=== PATIENT | female | born 1950 | race Caucasian/White ===

== ENCOUNTER 2017-07-21 14:30 | Outpatient (RCR) | payer MEDICARE, OTHER | END 2017-07-21 15:00 | disposition home or self-care (01) | LOC: PT 14:30 | DX: R26.0 Ataxic gait (principal) ==

== ENCOUNTER 2021-05-13 02:05 | Emergency (ER) | payer MEDICARE, OTHER ==
[~2021-05-13] VITALS: Ht 172.7 cm; Wt 73.0 kg
[2021-05-13] MEDS ORDERED: LEVOTHYROXINE0.05 MG PO (02:15)
[2021-05-13] MEDS ORDERED: ESCITALOPRAM20 MG PO (02:16)
[2021-05-13] MEDS ORDERED: LISINOPRIL20 MG PO (02:16)
[2021-05-13] MEDS ORDERED: SIMVASTATIN40 M1 PO (02:16)
[2021-05-13] MEDS ORDERED: AMBIEN5 M1 PO (02:16)
[2021-05-13] MEDS ORDERED: NORCO 325 MG-51 TA1 PO ×2 (04:11→04:19)
[2021-05-13 04:29] VITALS: BP 142/76
== END 2021-05-13 04:29 | disposition home or self-care (01) ==
LOC: ED 02:05
DX: S22.41XA Multiple fractures of ribs, right side, initial encounter for closed fracture (principal); M54.6 Pain in thoracic spine; M25.511 Pain in right shoulder; W01.198A Fall on same level from slipping, tripping and stumbling with subsequent striking against other object, initial encounter; Y92.091 Bathroom in other non-institutional residence as the place of occurrence of the external cause
CPT/HCPCS: J2405; J3010

== ENCOUNTER → 2021-07-27 | Outpatient (CLI) | payer MEDICARE, OTHER ==
[~2021-07-27] MED LIST: AMBIEN5 M1 PO; ESCITALOPRAM20 MG PO; LEVOTHYROXINE0.05 MG PO; LISINOPRIL20 MG PO; NORCO 325 MG-51 TA1 PO; SIMVASTATIN40 M1 PO
== END ==
LOC: RAD 07-23 18:15
DX: M25.511 Pain in right shoulder (principal)

== ENCOUNTER 2024-03-06 23:56 | Emergency (ER) | payer MEDICARE, OTHER ==
[~2024-03-06] VITALS: Ht 167.6 cm; Wt 68.2 kg
[2024-03-07] MEDS ORDERED: Ondansetron 4 MG/2 ML VIAL IV ONE (00:30)
[2024-03-07] MEDS ORDERED: NS 1,000 ML IV SCH (01:00)
[2024-03-07 01:01] LABS: BASO # 0.02 K/mm3 (0.02-0.10); EOS # 0.01 K/mm3 (0.04-0.40); EOS % 0.2 % (1.0-5.0); HEMATOCRIT 42.9 % (37.0-47.0); HEMOGLOBIN 14.6 g/dL (12.5-16.0); LYMPH# 0.87 K/mm3 (1.50-4.00); MEAN CELL VOLUME 102 fl (78-100); MEAN CORPUSCULAR HEMOGLOBIN 35 pg (27-31); MEAN CORPUSCULAR HGB CONC 34 g/dL (33-37); MEAN PLATELET VOLUME 9.5 fl (7.4-10.4); MONO # 0.35 K/mm3 (0.20-0.80); NEU # 5.26 K/mm3 (1.40-6.50); PLATELET COUNT 242 K/mm3 (130-400); RED CELL DISTRIBUTION WIDTH 12.5 % (11.5-14.5); WHITE BLOOD COUNT 6.6 K/mm3 (4.8-10.8)
[2024-03-07 01:08] LABS: ALBUMIN 4.3 g/dL (3.4-4.8); SODIUM 136 mmol/L (136-145)
[2024-03-07 01:10] LABS: CALCIUM 10.3 mg/dL (8.3-10.5); GLUCOSE 122 mg/dL (65-105)
[2024-03-07 01:11] LABS: TOTAL PROTEIN 7.1 g/dL (6.2-8.1)
[2024-03-07 01:13] LABS: CARBON DIOXIDE 16 mmol/L (23-31); TOTAL BILIRUBIN 0.3 mg/dL (0.2-1.2)
[2024-03-07 01:16] LABS: AST-SGOT 88 U/L (5-34)
[2024-03-07 01:17] LABS: ALT/SGPT 131 U/L (0-55)
[2024-03-07 01:18] LABS: LIPASE 41 U/L (8-78)
[2024-03-07 01:25] LABS: TROPONIN-I < 0.030 ng/mL (0.00-0.033)
[2024-03-07 01:37] LABS: PH-URINE 5.5 (5.0 - 8.0); URINE APPEARANCE SLIGHTLY CLOUDY (CLEAR); URINE COLOR DARK YELLOW (YELLOW); URINE PROTEIN(semi-quant) NEGATIVE (NEGATIVE)
[2024-03-07 01:38] LABS: URINE BILIRUBIN NEGATIVE (NEGATIVE); URINE BLOOD TRACE-INTACT (NEGATIVE); URINE GLUCOSE NEGATIVE (NEGATIVE); URINE KETONE 1+ (NEGATIVE); URINE LEUKOCYTE ESTERASE 1+ (NEGATIVE); URINE NITRATE NEGATIVE (NEGATIVE)
[2024-03-07 01:41] LABS: URINE MUCUS PRESENT (NOT PRESENT)
[2024-03-07] MEDS ORDERED: Iohexol 300 - 100 ML VIAL IV ONE (02:18)
[2024-03-07 04:39] VITALS: BP 181/112
== END 2024-03-07 04:41 | disposition home or self-care (01) ==
LOC: ED 23:56
PROVIDERS: Nurse Practitioner Family
DX: K52.9 Noninfective gastroenteritis and colitis, unspecified (principal); R74.02 Elevation of levels of lactic acid dehydrogenase [LDH]; Z90.49 Acquired absence of other specified parts of digestive tract
CPT/HCPCS: J0780; J2405; J7030; Q9967